=== PATIENT | male | born 1980 | race Two or more races ===

== ENCOUNTER 2017-09-26 08:00 | Day surgery (SDC) | payer OTHER ==
[~2017-09-26 08:00] MED LIST: ATENOLOL25 MG PO; METFORMIN HCL500 MG PO
== END 2017-09-26 16:55 | disposition home or self-care (01) ==
LOC: CIR.AMB 08:00
DX: N47.1 Phimosis (principal); Z30.2 Encounter for sterilization

== ENCOUNTER 2017-09-30 14:41 | Emergency (ER) | payer OTHER ==
[~2017-09-30] VITALS: Ht 185.4 cm; Wt 108.9 kg
[2017-09-30] MEDS ORDERED: CIPRO500 MG PO (14:57)
[2017-09-30] MEDS ORDERED: GENTAMICIN SUL3.5 GM OP (14:58)
== END 2017-09-30 16:11 | disposition home or self-care (01) ==
LOC: ER 14:41
DX: T81.30XA Disruption of wound, unspecified, initial encounter (principal); Y83.8 Other surgical procedures as the cause of abnormal reaction of the patient, or of later complication, without mention of misadventure at the time of the procedure; Y92.89 Other specified places as the place of occurrence of the external cause

== ENCOUNTER 2017-10-09 13:58 | Emergency (ER) | payer OTHER ==
[~2017-10-09] VITALS: Ht 185.4 cm; Wt 104.3 kg
[~2017-10-09 13:58] MED LIST changes: +CIPRO500 MG PO; +GENTAMICIN SUL3.5 GM OP
[2017-10-09] MEDS ORDERED: METFORMIN HCL1000 MG (14:19)
== END 2017-10-09 20:33 | disposition home or self-care (01) ==
LOC: ER 13:58
DX: N43.2 Other hydrocele (principal); N43.41 Spermatocele of epididymis, single